=== PATIENT | female | born 1980 | race Caucasian/White ===

== ENCOUNTER → 2020-01-13 10:33 | Outpatient (CLI) | payer OTHER, MEDICAID, SELFPAY ==
[2020-01-13 11:21] LABS: Influenza A - CEPHEID Flu A NEGATIVE (NEGATIVE); Influenza B - CEPHEID Flu B NEGATIVE (NEGATIVE)
== END ==
PROVIDERS: Visit Provider Physician Assistant
DX: R05 Cough (principal); R52 Pain, unspecified
CPT/HCPCS: 87502

== ENCOUNTER → 2020-03-14 09:23 | Outpatient (CLI) | payer OTHER, MEDICAID, SELFPAY ==
--- NOTE | 2020-03-14 09:24 | DI.MG.S_ITS ---
BILATERAL DIGITAL DIAGNOSTIC MAMMOGRAM 3D/2D: 03/14/2020 CLINICAL: Baseline exam. Breast lump. No prior exams were available for comparison. The tissue of both breasts is heterogeneously dense. This may lower the sensitivity of mammography. There is an amorphous heterogeneous calcification in the right breast central to the nipple anterior depth. This is seen in additional views. There also is a 1.4 cm oval mass with a circumscribed margin in the right breast anterior depth lateral region best seen on the craniocaudal view. There is an amorphous heterogeneous calcification in the left breast central to the nipple anterior depth. There also are multiple 10 cm areas of 1 cm to 2 cm oval asymmetries with a circumscribed margin in the left breast middle depth lateral region seen on the craniocaudal view only. No other significant masses or calcifications are seen in either breast. IMPRESSION: INCOMPLETE: NEEDS ADDITIONAL IMAGING EVALUATION The amorphous heterogeneous calcification in the right breast with 1.4 cm oval mass in the right breast anterior depth lateral region is indeterminate. An ultrasound is recommended. US will be performed and dictated separately. The amorphous heterogeneous calcifications in the left breast central to the nipple anterior depth with associated multiple 1 cm to 2 cm oval asymmetries in the left breast middle depth lateral region is indeterminate. An ultrasound is recommended but cannot be performed today and will be scheduled on the future. Complete recommendations will be made on ultrasound dictation to be performed today. This exam was interpreted at Station ID: [id number]. NOTE: For mammograms, a report in lay terms will be sent to the patient. Approximately 15% of breast malignancies will not be visualized mammographically. In the management of a palpable breast mass, a negative mammogram must not discourage biopsy of a clinically suspicious lesion. Electronically Signed By: Derrell Lockett acr/:03/14/2020 10:44:38 letter sent: Additional Imaging Needed ACR BI-RADS Category 0: Incomplete 3340F
--- NOTE | 2020-03-14 09:24 | DI.US.S_ITS ---
ULTRASOUND OF RIGHT BREAST: 03/14/2020 CLINICAL: Palpable right breast lump x 1 month. Comparison is made to exam dated: 03/14/2020 mammogram - [facility]. Color flow and Doppler ultrasound of the right breast were performed. There is a 1.4 cm x 1.1 cm x 1.5 cm cluster of cysts in the right breast at 8 o'clock posterior depth. IMPRESSION: INCOMPLETE: NEEDS ADDITIONAL IMAGING EVALUATION The 1.4 cm x 1.1 cm x 1.5 cm cluster of cysts in the right breast at 8 o'clock posterior depth likely represents a complex cyst and is indeterminate. See separate report of diagnostic mammogram from today's date. There is a cluster of microcalcifications in the right subareolar breast and in the left breast at approximately the 4:00 4cm posterior to the nipple. The left breast also has scattered punctate calcifications. Given that this is a baseline exam, the calcifications could probably be followed up in 6 months to ensure stability, however the left breast has multiple probable cysts also seen on mammogram which should be further evaluated with ultrasound. The patient will return for left breast ultrasound and combined BI-RADS will be made at that time. This exam was interpreted at Station ID: [id number]. Electronically Signed By: Derrell Lockett acr/:03/14/2020 11:21:15 letter sent: Additional Imaging Needed Ultrasound BI-RADS: 0 Indeterminate
== END ==
PROVIDERS: PCP Registered Nurse; Referring Provider Registered Nurse; Visit Provider Registered Nurse
DX: R92.8 Other abnormal and inconclusive findings on diagnostic imaging of breast (principal); R92.1 Mammographic calcification found on diagnostic imaging of breast; N60.01 Solitary cyst of right breast
CPT/HCPCS: 76642; 77066; G0279

== ENCOUNTER → 2020-04-03 10:39 | Outpatient (CLI) | payer OTHER, MEDICAID, SELFPAY ==
--- NOTE | 2020-04-03 10:41 | DI.US.S_ITS ---
ULTRASOUND OF LEFT BREAST: 04/03/2020 CLINICAL: Patient returns today to evaluate asymmetries in left breast. Comparison is made to exam dated: 03/14/2020 [facility]. Color flow and real-time ultrasound of the left breast were performed. Nicolas scale images of the real-time examination were reviewed. There is a benign 2 cm x 1.6 cm x 1.3 cm oval cyst with a smooth internal wall in the left breast at 1 o'clock middle depth. This oval cyst is anechoic with posterior acoustic enhancement. This correlates with mammography findings. Color flow imaging demonstrates that there is no vascularity present. There also is a benign 1.8 cm x 1.9 cm x 0.9 cm oval cyst with a smooth internal wall in the left breast at 1 o'clock middle depth. This oval cyst displays posterior acoustic enhancement. This correlates with mammography findings. Color flow imaging demonstrates that there is no vascularity present. Additionally, there is a benign 1.1 cm x 1.5 cm x 0.8 cm oval cyst with a smooth internal wall in the left breast at 3 o'clock posterior depth. This correlates with mammography findings. Color flow imaging demonstrates that there is no vascularity present. In addition, there is a benign 2.2 cm x 2.3 cm x 1.3 cm irregular cyst in the left breast at 1 o'clock anterior depth. This irregular cyst is anechoic. This correlates with mammography findings. Color flow imaging demonstrates that there is no vascularity present. IMPRESSION: PROBABLY BENIGN The 2 cm cyst in the left breast at 1 o'clock middle depth is benign. The 1.9 cm cyst in the left breast at 1 o'clock middle depth is consistent with a simple cyst and is benign. The 1.5 cm cyst in the left breast at 3 o'clock posterior depth is consistent with a simple cyst and is benign. The 2.3 cm cyst in the left breast at 1 o'clock anterior depth is consistent with a simple cyst and is benign. A follow-up bilateral mammogram and right breast ultrasound in 6 months is recommended to demonstrate stability of complicated right breast cyst and bilateral breast calcifications. Findings and recommendations were conveyed to the patient at time of exam. This exam was interpreted at Station ID: [id number]. Electronically Signed By: Vijaya briones/:04/03/2020 12:10:07 letter sent: Followup Recommended Ultrasound BI-RADS: 3 Probably benign
== END ==
PROVIDERS: PCP Registered Nurse; Referring Provider Registered Nurse; Visit Provider Registered Nurse
DX: R92.8 Other abnormal and inconclusive findings on diagnostic imaging of breast (principal); N60.02 Solitary cyst of left breast
CPT/HCPCS: 76642

== ENCOUNTER → 2020-06-26 14:03 | Outpatient (CLI) | payer OTHER, MEDICAID, SELFPAY ==
[2020-06-26 14:23] LABS: Add Manual Diff / Slide Review NO; Basophils Absolute Auto 0 /uL (0-100); Basophils Percent Auto 0.3 % (0-2); Eosinophils Absolute Auto 400 /uL (0-450); Eosinophils Percent Auto 4.6 % (2-4); Hematocrit 39.4 % (36-46); Lymphocytes Absolute Auto 2600 /uL (1100-4500); Lymphocytes Percent Auto 32.7 % (25-40); Mean Corpuscular Hemoglobin 30.8 PG (26-34); Mean Corpuscular Volume 93.3 fL (80-100); Monocytes Absolute Auto 500 /uL (0-900); Monocytes Percent Auto 6.5 % (3-14); Neutrophils Absolute Auto 4400 /uL (1500-7000); Neutrophils Percent Auto 55.9 % (50-75); Platelet Count 363 X10^3/uL (150-400); Red Blood Cell Count 4.23 X10^6/uL (4.0-5.2); Red Cell Distribution Width 13.4 % (11.6-14.8); White Blood Cell Count 7.8 X10^3/uL (4.5-11.0)
[2020-06-26 14:35] LABS: Hemoglobin A1C% w Est Avg Glu 5.9 % (4.0-6.0)
[2020-06-26 14:41] LABS: Alanine Aminotransferase 14 IU/L (<35); Albumin 4.6 g/dL (3.5-5.0); Albumin Globulin Ratio 1.5 (1.0-2.8); Alkaline Phosphatase 86 U/L (38-126); Aspartate Aminotransferase 24 IU/L (14-36); BUN Creatinine Ratio 19.2 (6-22); Bilirubin Total 0.3 mg/dL (0.2-1.3); Blood Urea Nitrogen 15 mg/dL (7-17); Calcium 9.3 mg/dL (8.4-10.2); Carbon Dioxide 29 mmol/L (22-32); Chloride 104 mmol/L (98-107); Estimated Glomerular Filt Rate > 60.0 mL/min (>60); Globulin 3.1 g/dL (1.7-4.1); Glucose 157 mg/dL (70-100); HEMOLYSIS < 15 (0-50); Potassium 4.3 mmol/L (3.4-5.1); Sodium 140 mmol/L (137-145); Total Protein 7.7 g/dL (6.3-8.2)
[2020-06-26 14:58] LABS: Free T4, Direct Thyroxine 1.48 ng/dL (0.78-2.19)
[2020-06-26 15:12] LABS: Thyroid Stimulating Hormone 0.798 uIU/mL (0.47-4.68)
== END ==
PROVIDERS: PCP Registered Nurse; Referring Provider Registered Nurse; Visit Provider Registered Nurse
DX: R53.83 Other fatigue (principal); E11.9 Type 2 diabetes mellitus without complications; E03.9 Hypothyroidism, unspecified
CPT/HCPCS: 36415; 80053; 83036; 84439; 84443; 85025

== ENCOUNTER → 2020-06-27 15:16 | Outpatient (CLI) | payer OTHER, MEDICAID, SELFPAY ==
[2020-06-27 17:31] LABS: Creatinine Urine Random 136.4 mg/dL
[2020-06-27 17:38] LABS: Microalbumi Creatinin Ratio Ur 5.8 ug/mg CR (<30); Microalbumin Urine Random 0.8 mg/dL (0-1.6)
== END ==
PROVIDERS: PCP Registered Nurse; Referring Provider Registered Nurse; Visit Provider Registered Nurse
DX: E11.9 Type 2 diabetes mellitus without complications (principal)
CPT/HCPCS: 82043; 82570

== ENCOUNTER → 2020-10-10 08:38 | Outpatient (CLI) | payer OTHER, MEDICAID, SELFPAY ==
--- NOTE | 2020-10-10 08:40 | DI.MG.S_ITS ---
BILATERAL DIGITAL DIAGNOSTIC MAMMOGRAM 3D/2D SHORT-TERM FOLLOW-UP: 10/10/2020 CLINICAL: Short term follow up. Comparison is made to exam dated: 03/14/2020 [facility]. The tissue of both breasts is heterogeneously dense. This may lower the sensitivity of mammography. There is a 1.4 cm oval mass with a circumscribed margin in the right breast anterior depth lateral region seen on the craniocaudal view only. This is not significantly changed. There also are grouped heterogeneous punctate calcifications in the right breast central to the nipple anterior depth. This is seen in additional views. This is not significantly changed. There are grouped heterogeneous punctate calcifications in the left breast central to the nipple anterior depth. This is not significantly changed. There also are multiple stable 10 cm area of 1 cm to 2 cm oval asymmetries with circumscribed margins in the left breast middle depth lateral region which correlated with prior ultrasound findings of simple cysts. No other significant masses or calcifications are seen in either breast. IMPRESSION: INCOMPLETE: NEEDS ADDITIONAL IMAGING EVALUATION The 1.4 cm oval mass in the right breast anterior depth lateral region seen on the craniocaudal view only is indeterminate. An ultrasound is recommended for further evaluation and is scheduled to immediately follow this examination. The grouped heterogeneous punctate calcifications in the right breast central to the nipple anterior depth are probably benign. The grouped heterogeneous punctate calcifications in the left breast central to the nipple anterior depth are probably benign. The multiple stable circumscribed masses 1 cm to 2 cm in size in the left breast middle depth lateral region seen on the craniocaudal view only are consistent with previously seen simple cysts are benign. This exam was interpreted at Station ID: [id number]. NOTE: For mammograms, a report in lay terms will be sent to the patient. Approximately 15% of breast malignancies will not be visualized mammographically. In the management of a palpable breast mass, a negative mammogram must not discourage biopsy of a clinically suspicious lesion. Electronically Signed By: Sumit Gil M.D. aty/:10/10/2020 09:30:18 ACR BI-RADS Category 0: Incomplete 3340F
--- NOTE | 2020-10-10 08:40 | DI.US.S_ITS ---
ULTRASOUND OF RIGHT BREAST: 10/10/2020 CLINICAL: 6 month follow-up of cysts. Comparison is made to exams dated: 10/10/2020 mammogram, 03/14/2020 ultrasound, and 03/14/2020 mammogram - [facility]. Color flow and real-time ultrasound of the right breast were performed. Nicolas scale images of the real-time examination were reviewed. There is a 1.7 cm x 0.9 cm x 1.9 cm cluster of cysts with thin septated internal vick in the right breast at 8 o'clock posterior depth 2 cm from the nipple. This cluster of cysts is anechoic. These abnormalities are increased in size but remains cystic without suspicious solid components. Color flow imaging demonstrates that there is no vascularity present. IMPRESSION: PROBABLY BENIGN The 1.7 cm x 0.9 cm x 1.9 cm cluster of cysts versus complicated cyst in the right breast remains probably benign. A follow-up bilateral mammogram for previously described grouped calcifications as well as a follow up right ultrasound in 6 months is recommended to demonstrate stability. Findings and recommendations were conveyed to the patient during today's evaluation. This exam was interpreted at Station ID: [id number]. Electronically Signed By: Sumit Gil M.D. aty/:10/10/2020 10:41:12 letter sent: Followup Recommended Ultrasound BI-RADS: 3 Probably benign
== END ==
PROVIDERS: PCP Registered Nurse; Referring Provider Registered Nurse; Visit Provider Registered Nurse
DX: R92.1 Mammographic calcification found on diagnostic imaging of breast (principal); N60.01 Solitary cyst of right breast; R92.8 Other abnormal and inconclusive findings on diagnostic imaging of breast
CPT/HCPCS: 76642; 77066; G0279

== ENCOUNTER → 2021-05-02 09:14 | Outpatient (CLI) | payer OTHER, MEDICAID, SELFPAY ==
--- NOTE | 2021-05-02 09:16 | DI.US.S_ITS ---
ULTRASOUND OF RIGHT BREAST: 05/02/2021 CLINICAL: 6 month follow-up of cysts. Comparison is made to exams dated: 05/02/2021 mammogram, 10/10/2020 ultrasound, 10/10/2020 mammogram, 03/14/2020 ultrasound, and 03/14/2020 mammogram - [facility]. Color flow and Doppler ultrasound of the right breast were performed. Nicolas scale images of the real-time examination were reviewed. There is a benign 0.9 cm x 0.9 cm x 1 cm cyst in the right breast at 9 o'clock anterior depth which is smaller compared to the prior mammogram. IMPRESSION: BENIGN There is no sonographic evidence of malignancy. Multiple bilateral cysts are identified on mammogram performed today which are well-circumscribed and unchanged compared to prior mammogram. Additionally the corticated cyst on the right described above is smaller. Calcifications in both breasts are stable for a year. Return to annual mammogram screening schedule is recommended. This exam was interpreted at Station ID: [id number]. Electronically Signed By: Derrell Lockett acr/:05/02/2021 11:50:36 letter sent: Normal Exam Ultrasound BI-RADS: 2 Benign
--- NOTE | 2021-05-02 09:16 | DI.MG.S_ITS ---
BILATERAL DIGITAL DIAGNOSTIC MAMMOGRAM 3D/2D: 05/02/2021 CLINICAL: Short term follow up for bilateral breasts. Comparison is made to exams dated: 10/10/2020 mammogram and 03/14/2020 mammogram - [facility]. The tissue of both breasts is heterogeneously dense. This may lower the sensitivity of mammography. There is a 1.4 cm oval mass with a circumscribed margin in the right breast anterior depth lateral region seen on the craniocaudal view only. This is not significantly changed. There also is a stable benign heterogeneous punctate calcification in the right breast central to the nipple in the retroareolar region. This is seen in additional views. There is a stable benign heterogeneous punctate calcification in the left breast central to the nipple anterior depth. This is seen in additional views. There also are multiple stable 10 cm areas of 1 cm to 2 cm oval asymmetries with a circumscribed margin in the left breast middle depth lateral region seen on the craniocaudal view only. These correlate with ultrasound findings. No other significant masses or calcifications are seen in either breast. IMPRESSION: INCOMPLETE: NEEDS ADDITIONAL IMAGING EVALUATION The 1.4 cm oval mass in the right breast anterior depth lateral region seen on the craniocaudal view only is indeterminate. An ultrasound is recommended. The multiple stable 10 cm areas of 1 cm to 2 cm oval asymmetries in the left breast middle depth lateral region seen on the craniocaudal view only are consistent with clustered cysts and are benign. This exam was interpreted at Station ID: [id number]. NOTE: For mammograms, a report in lay terms will be sent to the patient. Approximately 15% of breast malignancies will not be visualized mammographically. In the management of a palpable breast mass, a negative mammogram must not discourage biopsy of a clinically suspicious lesion. Electronically Signed By: Derrell Lockett acr/penrad:05/02/2021 10:27:23 ACR BI-RADS Category 0: Incomplete [id number]
== END ==
PROVIDERS: PCP Registered Nurse; Referring Provider Registered Nurse; Visit Provider Registered Nurse
DX: R92.1 Mammographic calcification found on diagnostic imaging of breast (principal); N60.01 Solitary cyst of right breast; N60.02 Solitary cyst of left breast
CPT/HCPCS: 76642; 77066; G0279

== ENCOUNTER → 2022-07-29 08:45 | Outpatient (CLI) | payer OTHER, MEDICAID, SELFPAY ==
[2022-07-29 10:50] LABS: Add Manual Diff / Slide Review NO; Basophils Absolute Auto 0 /uL (0-100); Basophils Percent Auto 0.4 % (0-2); Eosinophils Absolute Auto 400 /uL (0-450); Eosinophils Percent Auto 5.1 % (2-4); Hematocrit 37.6 % (36-46); Hemoglobin 12.7 g/dL (12.0-16.0); Lymphocytes Absolute Auto 2000 /uL (1100-4500); Lymphocytes Percent Auto 24.7 % (25-40); Mean Corpuscular HGB Conc 33.9 % (30-36); Mean Corpuscular Volume 94.5 fL (80-100); Monocytes Absolute Auto 600 /uL (0-900); Monocytes Percent Auto 7.9 % (3-14); Neutrophils Absolute Auto 5000 /uL (1500-7000); Neutrophils Percent Auto 61.9 % (50-75); Platelet Count 420 X10^3/uL (150-400); Red Blood Cell Count 3.98 X10^6/uL (4.0-5.2); Red Cell Distribution Width 14.2 % (11.6-14.8)
[2022-07-29 11:23] LABS: Alanine Aminotransferase 22 IU/L (<35); Albumin 4.2 g/dL (3.5-5.0); Albumin Globulin Ratio 1.4 (1.0-2.8); Alkaline Phosphatase 113 U/L (38-126); Aspartate Aminotransferase 25 IU/L (14-36); BUN Creatinine Ratio 15.5 (6-22); Bilirubin Total 0.4 mg/dL (0.2-1.3); Blood Urea Nitrogen 13 mg/dL (7-17); Calcium 8.3 mg/dL (8.4-10.2); Carbon Dioxide 30 mmol/L (22-32); Chloride 101 mmol/L (98-107); Cholesterol 158 mg/dL (140-199); Estimated Glomerular Filt Rate > 60 mL/min (>60); Globulin 2.9 g/dL (1.7-4.1); Glucose 108 mg/dL (70-100); HDL Cholesterol 72 mg/dL (40-60); HEMOLYSIS < 15 (0-50); LDL Cholesterol Calculated 67 mg/dL (<100); Potassium 4.8 mmol/L (3.4-5.1); Sodium 138 mmol/L (137-145); Total Protein 7.1 g/dL (6.3-8.2); Triglycerides 95 mg/dL (35-150)
[2022-07-29 16:45] LABS: Creatinine Urine Random 200.6 mg/dL
[2022-07-29 16:49] LABS: Microalbumi Creatinin Ratio Ur 6.4 ug/mg CR (<30); Microalbumin Urine Random 1.3 mg/dL (0-1.6)
[2022-07-30 13:48] LABS: HEMOLYSIS < 15 (0-50); Iron 112 ug/dL (37-170)
[2022-07-30 14:10] LABS: Percent Iron Saturation 30 % (15-50); Total Iron Binding Capacity 376 ug/dL (265-497); Transferrin 273 mg/dL (206-381)
[2022-07-30 17:28] LABS: Free T3, Triiodothyronine Free 2.99 pg/mL (2.77-5.27); Free T4, Direct Thyroxine 0.96 ng/dL (0.78-2.19)
[2022-07-30 17:42] LABS: Thyroid Stimulating Hormone 33.6 uIU/mL (0.47-4.68)
== END ==
PROVIDERS: PCP Family Medicine; Referring Provider Family Medicine; Visit Provider Family Medicine
DX: E03.9 Hypothyroidism, unspecified (principal); E11.9 Type 2 diabetes mellitus without complications; R19.7 Diarrhea, unspecified
CPT/HCPCS: 36415; 80053; 80061; 82043; 82570; 83540; 83550; 84439; 84443; 84481; 85025